=== PATIENT | male | born 1960 | race Caucasian/White ===

== ENCOUNTER → 2018-04-02 | Outpatient (CLI) | payer OTHER | LOC: M CARPUL 08:16 | DX: R07.9 Chest pain, unspecified (principal) | CPT/HCPCS: 93306 ==

== ENCOUNTER 2023-10-06 10:01 | Day surgery (SDC) | payer OTHER ==
[~2023-10-06] VITALS: Ht 185.4 cm; Wt 106.8 kg
[~2023-10-06 10:01] MED LIST: JARD1TAB3 PO; MELO15TA28 PO; METO1TAB33 PO; NS 1,000 ML IV ONE; ROSU40TA63 PO
[2023-10-06] MEDS ORDERED: propofoL 200 MG/20 ML VIAL As Ordered ONE (11:03)
[2023-10-06 11:08] VITALS: TEMP 96.6
[2023-10-06 11:25] VITALS: BP 166/83; O2SAT 100
== END 2023-10-06 11:44 | disposition home or self-care (01) ==
LOC: M OPP 10:01
PROVIDERS: ATTEND Internal Medicine Gastroenterology
DX: Z12.11 Encounter for screening for malignant neoplasm of colon (principal); Z12.12 Encounter for screening for malignant neoplasm of rectum; K64.0 First degree hemorrhoids; E11.9 Type 2 diabetes mellitus without complications; I10 Essential (primary) hypertension; E78.00 Pure hypercholesterolemia, unspecified; Z90.49 Acquired absence of other specified parts of digestive tract; Z79.899 Other long term (current) drug therapy; Z79.1 Long term (current) use of non-steroidal anti-inflammatories (NSAID); Z79.84 Long term (current) use of oral hypoglycemic drugs